=== PATIENT | female | born 1980 | race Caucasian/White ===

== ENCOUNTER 2024-06-10 17:42 | Inpatient (IN) | payer OTHER, SELFPAY ==
[2024-06-10] VITALS (8 sets, daily range): BP systolic 112–131; BP diastolic 68–79; BMI 38.8
--- NOTE | 2024-06-10 14:12 | W.PN.CARDCBS ---
Addendum entered and electronically signed by Christiano Prasad DO 06/10/24 18:14:
I saw and examined the patient.
The Fourdrinier Wire Weaver's note was reviewed and I agree with the note.
Comment:
Patient seen status post pericardiocentesis and drain with Dr. Alex Rubi. Patient reporting discomfort at drain site and with deep inspiration. No other complaints at this time. Patient reports not feeling short of breath.
Telemetry shows sinus tachycardia, PACs
Echocardiogram: Limited study shows large pericardial effusion with evidence of tamponade; within the same study, status post drain placement and resolution of effusion. Technically difficult study by habitus.
GENERAL: no acute distress, obese
EYE: sclera anicteric
NECK: Supple, no JVD, no carotid bruit appreciated
ENT: normal nose, moist mucosal membranes
CARDIAC: Tachycardic, regular rhythm, distant heart sounds, +S1/S2, no murmur, rubs, or gallops; drain in place
CHEST/PULMONARY: Normal effort, clear breath sounds, anteriorly
ABDOMEN: Soft, without focal tenderness or distention
NEUROLOGICAL: Alert and oriented x3
SKIN: Warm and dry, no rash
PSYCH: Normal and appropriate interaction.
A/P as below
Awaiting results from fluid analysis
Plan for repeat echocardiogram in a.m.
Monitor drain output
Colchicine 0.6 mg twice daily
Portable chest x-ray per Dr. Rubi
Monitor on telemetry
Original Note:
Today's Communication / Plan
-
Pericardiocentesis
fluid to micro
monitor drainage over next 24-48 hours
repeat echo in AM
Impression / Plan
-
This is the cardiology consult update.
Consult scanned into chart.
PCP: Thu Hinkle MD
CDY: Tito Smith MD
43 y/o female, presents with metastatic breast cancer on chemotherapy, in remission based on last PET scan. Presented to [facility] w/3 days dyspnea and fatigue. Bedside echo revealed large pericardial effusion w/evidence of tamponade. IVC dilated and not
collapsible, but clear diastolic collapse of the RA and RV. Transferred for pericardiocentesis.
IMPRESSION/PLAN:
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
Invasive ductal carcinoma Left breast
Lymphadenopathy
Metastatic Breast Cancer
s/p partial mastectomy L breast with L axilla LND (10/2019)
s/p Bilateral breast reconstruction (06/2021)
s/p Left breast reconstruction (08/2021)
s/p GENEVIEVE-BSO
s/p redo bilateral breast reconstruction (12/2022 and 06/2023)
Recent PET scan shows remission
Dr. Lewis is oncologist
continue pain management- tramadol, medical marijuana
Large pericardial effusion w/evidence of tamponade
Pericardiocentesis today with fluid sent to microbiology
likely drain to remain in post tap
repeat echo in AM
Chronic Migraine
Anxiety/Depression
Left Knee Osteoarthritis
Right knee patellofemoral arthralgia
Progress Note - Helicopter Officer
Subjective
Date of Service: June 10, 2024
Physical Exam
Physical Exam
Exam deferred d/t urgent nature of tamponade
--- NOTE | 2024-06-10 14:27 | ITS.CL.PN ---
Domestic Freight Forwarder - Procedure Note
Procedure
Procedure Note:
PERICARDIOCENTESIS REPORT
Date: 06/10/2024
Referring: Dr. Tito Smith from the [facility] emergency room
Indications: The patient is a 43-year-old woman with a past medical history significant for recurrent breast cancer on chemotherapy who presented with several days of increasing dyspnea and fatigue to the [facility] emergency room. Workup
in the emergency room showed a CAT scan with a large pericardial effusion. Stat echocardiogram performed in the [facility] emergency room showed a large pericardial effusion with echocardiographic evidence of tamponade physiology. She was
transferred to [facility] for urgent pericardiocentesis. The subxiphoid images were suboptimal and a apical approach is planned.
Procedure: Informed consent was obtained and the patient was draped and prepped in usual sterile fashion. Ultrasound guidance was used. A subxiphoid approach was not performed due to the long distance necessary from the skin to the pericardial
space. Instead a apical approach was used as I felt this was the safest easiest access to the largest area of pericardial effusion. The patient was given conscious sedation with Versed and fentanyl. Lidocaine was used to anesthetize the skin and
underlying tissues. A micropuncture needle was advanced over the cephalic edge of the rib and entered the pericardial space. A micropuncture wire was advanced and movement of the wire suggested a intrapericardial location. The micropuncture
sheath was then advanced and agitated saline was injected and confirmed to be in the pericardial space using echocardiography. A pigtail catheter was then positioned in the pericardium and approximately 660 cc of bloody dark fluid was removed. The
pigtail catheter was sutured in place and follow-up echocardiography showed complete resolution of the pericardial effusion.
Fluoroscopy Time (min): 2.7
Radiation Dose (mGy): 21
DAP (Gy.cm2): 3.5
Conclusion: Successfu placement of a pericardial drain with removal of 660 cc of bloody fluid.
Recommendations: Admit to IVU for ongoing telemetry monitoring. Will monitor pericardial drain output and likely pull the drain if no longer draining in the morning.
--- NOTE | 2024-06-10 15:57 | HPS.HSE ---
Family Physician
-
Family Physician: Thu Hinkle
Chief Complaint
-
Referred for pericardiocentesis
History of Present Illness
Patient is a 43 y/o female with PMH of metastatic breast cancer who presented to [facility] ED today following 3 days of dyspnea and chest tightness, exacerbated by exertion. Mentions it felt like she was gasping for air and that she could not expand her
lungs properly. Bedside echo in [facility] ED showed large pericardial effusion with evidence of tamponade. According to patient, chest CT with PE protocol was done which did not show any filling defects. Patient was transferred to for
pericardiocentesis and immediately went to incinerator plant laborer. Patient was seen after coming back from incinerator plant laborer. present at bedside
Currently, she is comfortably lying in bed. Denies any shortness of breath. Reports slight pain at the site of pericardiocentesis. Does not offer any other complaints.
Medical History
Past Medical History
Past Medical History: Reports Cancer (Left breast DCIS), Psychiatric (Anxiety/depression ) and Other
Additional Past Medical History:
Migraine, left knee osteoarthritis
Past Surgical History: Reports Other
Additional Past Surgical History:
s/p partial mastectomy L breast with L axilla LND (10/2019)
s/p Bilateral breast reconstruction (06/2021)
s/p Left breast reconstruction (08/2021)
s/p GENEVIEVE-BSO
s/p redo bilateral breast reconstruction (12/2022 and 06/2023)
Social History
Tobacco: Non-smoker
Alcohol: Occasional
Drug: None
Family History
Family History: Other (Thyroid cancer maternal grandmother, malignant prostate cancer father)
Allergies / Home Medications
Allergies reflects when Allergies were last updated in [employer].
Home Medications with original date entered in [employer]
Allergy/Medication List:
Allergies
Allergy/AdvReac Type Severity Reaction Status Date / Time
amoxicillin Allergy full body Verified 06/10/24 16:05
rash
codeine Allergy projectile Verified 06/10/24 16:05
vomiting
erythromycin base Allergy Vomiting Verified 06/10/24 16:05
Penicillins Allergy Vomiting Verified 06/10/24 16:05
Home Medications
oudwcagahv-ggbepnlidfigt-iccwexvx 50 mg-300 mg-40 mg capsule (Fioricet) 1 cap PO Q8HPRN PRN migraine 06/10/24
calcium 600 mg (as carbonate)-vitamin D3 20 mcg (800 unit) tablet (Caltrate with Vitamin D3) 1 tab PO BID 06/10/24
docusate sodium 100 mg capsule (Colace) 100 mg PO BID 06/10/24
duloxetine 30 mg capsule,delayed release (Cymbalta) 30 mg PO HS 06/10/24
gabapentin 300 mg capsule 600 mg PO DAILY 06/10/24
gabapentin 300 mg capsule 900 mg PO HS 06/10/24
lorazepam 0.5 mg tablet 0.5 mg PO Q4HPRN PRN anxiety 06/10/24
melatonin 10 mg capsule 20 mg PO HS 06/10/24
multivitamin 1 tab PO DAILY 06/10/24
multivitamin with minerals (Hair,Skin and Nails tablet) 3 tab PO DAILY 06/10/24
pantoprazole 40 mg tablet,delayed release (Protonix) 40 mg PO HS 06/10/24
tramadol 50 mg tablet 50 mg PO Q6H PRN moderate pain 06/10/24
Review of Systems
-
History Source: Patient
A 12 point ROS was completed and negative except as noted: Yes
Respiratory: Reports No Symptoms
Cardiac: Reports Chest Pain (Slight pain at site of drain)
Physical Exam
Physical Exam
General: Well Developed, Well Nourished, Conversant and Morbidly Obese
HEENT: NormoCephalic, Anicteric and Moist mucous membranes
Respiratory: Clear, Non Labored Respirations and Other (Saturating well on room air); No Wheezes or Crackles
Cardiac: S1/S2, Regular Rhythm, Tachycardia (Ranging between 95-105) and Other (Anterior chest drain, mild TTP)
GI: Soft, Non Tender, Non Distended and Normal Bowel Sounds
Musculoskeletal: No Clubbing, No Cyanosis and No Edema
Skin: Warm and Dry
Neuro: Awake, Alert, Oriented and AO x 3; No Slurred Speech
Psych: Calm and Intact Judgment/Insight
Impression/Plan
-
43 y/o F with past medical history of metastatic left breast cancer who was referred for pericardiocentesis for pericardial effusion.
#Metastatic breast cancer with pericardial effusion:
-Appreciate cardiology-s/p pericardiocentesis (660cc removed in cath lab nurse)
-drain to remain in place (high risk for clogging as per cardiology)
-Pericardial fluid sent for culture and cytology
-CXR reviewed by me-no signs of pneumothorax or pleural effusion, cardiomegaly
-Start colchicine for pericarditis prophylaxis
-Cardiology plans for echo tomorrow
-pain control with tramadol and dilaudid as needed-continue home gabapentin
-IV vascular team consulted for IV access
-CBC, BMP ordered for tomorrow
# GERD prophylaxis
-Continue Protonix
# Vitamin D deficiency
-Continue calcium carbonate
# Depression/anxiety
-Continue Cymbalta
DVT prophylaxis
Lovenox
CODE STATUS
Full code
--- NOTE | 2024-06-10 17:41 | W.PN.UPDATE ---
Update Note
Progress Note Update
I personally performed a history and physical exam of the patient and discussed management with the resident. I reviewed the resident's note and agree with the documented findings and plan of care HPI/CC.
43 y/o F who presented from the clinical laboratory manager after having pericardiocentesis via apical approach for malignant pericardial effusion due to metastatic breast cancer. Patient reports of
121/74, 124, 26, 99% RA
Gen: NAD, AAOx3.
Eyes: EOMI, PERRLA, no scleral icterus.
Neck: supple.
CV: RRR, +S1/S2, no m/r/g.
Resp: CTAB, no rales, wheezes, or rhonchi.
Abd: +BS, soft, NT, ND
Skin: No rashes.
Neuro: CN 2-12 intact, non-focal.
Psych: Normal mood and affect.
Metastatic breast cancer with malignant pericardial effusion:
-s/p 660cc removed in clinical laboratory manager via apical approach, drain to remain in place (high risk for clogging as per cardiology)
-Follow fluid studies including fluid culture and cytology
-check CXR
-start colchicine for pericarditis prophylaxis
-echo tomorrow
-c/s cards, discussed with Dr. Prasad
-pain control (tramadol/dilaudid)
FULL/Lovenox
[2024-06-10 17:49] LABS: Body Fluid Glucose 46 mg/dl; Body Fluid Protein 5.7 g/dl
[2024-06-10 17:55] LABS: Body Fluid Hematocrit 21.7 %; Body Fluid WBC 1210 /CUMM
[2024-06-10 17:57] LABS: Body Fluid Second Tech EYM
[2024-06-10 18:15] LABS: % Basophils 0.4 % (0-2); % Immature Granulocytes 0.7 % (0-0.5); % Lymphocytes 10.6 % (20.5-51.1); % Monocytes 2.8 % (1.7-9.3); % Neutrophils 85.5 % (42.2-75.2); Absolute Lymphocytes 0.5 10^3/uL (1.2-3.4); Absolute Monocytes 0.1 10^3/uL (0.1-0.6); Absolute Neutrophils 3.9 10^3/uL (1.4-6.5); Hematocrit 24.4 % (37.0-47.0); Hemoglobin 7.9 g/dL (12.0-16.0); Mean Corp Hgb Conc. 32.4 g/dL (33.0-37.0); Mean Corpuscular Hgb 33.6 pg (27.0-31.0); Mean Corpuscular Volume 103.8 fL (81.0-99.0); Mean Platelet Volume 8.8 fL (7.4-10.4); Nucleated Red Blood Cells % 0 %; Platelet Count 172 10^3/uL (130-400); Red Blood Cell Count 2.35 10^6/uL (4.20-5.40); Red Cell Dist. Width 20.5 % (11.5-14.5); White Blood Cell Count 4.6 10^3/uL (4.8-10.8)
[2024-06-10 18:17] LABS: Body Fluid LDH 3391 U/L
[2024-06-10 18:27] LABS: ALT (SGPT) 200 U/L (0-35); AST (SGOT) 107 U/L (14-36); Albumin 3.8 g/dl (3.5-5.0); Alkaline Phosphatase 134 U/L (38-126); Blood Urea Nitrogen 14 mg/dl (7-17); Calcium 8.3 mg/dl (8.4-10.2); Carbon Dioxide 26 mmol/L (22-30); Chloride 101 mmol/L (98-107); Estimated Creatinine Clearance > 125 ml/min; Glucose 102 mg/dl (70-99); Potassium 3.8 mmol/L (3.5-5.1); Sodium 134 mmol/L (135-145); Total Bilirubin 1.3 mg/dl (0.2-1.3); eGFR > 60.00
[2024-06-10 19:30] LABS: Body Fluid Granulocytes 84 %; Body Fluid Lymphocytes 4 %; Body Fluid Macrophages 6 %; Body Fluid Mesothelials 5 %
--- NOTE | 2024-06-10 19:30 | PTCARENOTE ---
Pt received from manager labor delivery post pericardiocentesis. Left lower chest dressing dry and intact, drain contains @20mls serosanguineous fluid. Pt c/o 8/10 left sided chest pain, unable to take deep breaths or get comfortable. Oxygen sat 96% on room air.
Portable CXR done, no pneumo noted per . Pt seen by Drs. Rubi, Shanice and Anant. Will plan to give pain medication after pt eats a little (her request). Pt assisted OOB to commode, voiding without difficulty. Telemetry shows sinus tach @
110-120's. Will monitor closely.
[2024-06-10] MEDS: OSCAL 500 + D 500 MG PO (19:38)
[2024-06-10] MEDS: SENOKOT-S 1 TABLET PO (19:38)
[2024-06-10] MEDS: COLCHICINE 0.6 MG PO (19:39)
[2024-06-10] MEDS: DILAUDID 0.5 MG IV ×2 (19:39→22:54)
--- NOTE | 2024-06-10 21:07 | PTCARENOTE ---
Received patient at change of shift. Laying in bed with bedside. A&OX3. Temp 100.6, HR 130s-120s, BP and O2 stable. Pain 10/10 at drain site and left side. Gave Dilaudid-- see MAR. IV team called to access port. Discussed plan of care.
Patient verbalized understanding.
[2024-06-10] MEDS: ATIVAN 0.5 MG PO (21:41)
--- NOTE | 2024-06-10 22:11 | VATNOTE ---
attempted several times to access port; unable to reach diaphragm; another VAT RN to attempt.
--- NOTE | 2024-06-10 22:42 | VATNOTE ---
ATTEMPTED X2 TO ACCESS R SUBQ POWER PRT W/O SUCCESS. PT REPORTS THERE IS OFTEN DIFFICULTY WELL AT [facility] . PT WITH ADEQUATE PERIPHERAL IV ACCESS.
[2024-06-10] MEDS: NEURONTIN 900 MG PO (22:55)
[2024-06-10] MEDS: MELATONIN 20 MG PO (22:55)
[2024-06-10] MEDS: PROTONIX 40 MG PO (22:55)
[2024-06-10] MEDS: TYLENOL 650 MG PO (22:55)
[2024-06-10] MEDS: CYMBALTA DELAYED RELEASE 30 MG PO (22:55)
--- NOTE | 2024-06-11 00:11 | PTCARENOTE ---
Patient temp 101.4. Tylenol given-- see MAR.
[2024-06-11 04:31] VITALS: BP 114/73
[2024-06-11] MEDS: ULTRAM 50 MG PO ×2 (04:36→19:07)
[2024-06-11 05:28] LABS: % Basophils 0.5 % (0-2); % Eosinophils 0.3 % (0-6); % Immature Granulocytes 0.5 % (0-0.5); % Lymphocytes 15.9 % (20.5-51.1); % Monocytes 2.6 % (1.7-9.3); % Neutrophils 80.2 % (42.2-75.2); Absolute Lymphocytes 0.6 10^3/uL (1.2-3.4); Absolute Monocytes 0.1 10^3/uL (0.1-0.6); Absolute Neutrophils 3.1 10^3/uL (1.4-6.5); Hematocrit 24.5 % (37.0-47.0); Mean Corp Hgb Conc. 32.7 g/dL (33.0-37.0); Mean Corpuscular Hgb 32.5 pg (27.0-31.0); Mean Corpuscular Volume 99.6 fL (81.0-99.0); Mean Platelet Volume 9.1 fL (7.4-10.4); Nucleated Red Blood Cells % 0 %; Platelet Count 182 10^3/uL (130-400); Red Blood Cell Count 2.46 10^6/uL (4.20-5.40); Red Cell Dist. Width 19.9 % (11.5-14.5); White Blood Cell Count 3.8 10^3/uL (4.8-10.8)
[2024-06-11 06:13] LABS: ALT (SGPT) 171 U/L (0-35); AST (SGOT) 79 U/L (14-36); Albumin 3.5 g/dl (3.5-5.0); Alkaline Phosphatase 112 U/L (38-126); Blood Urea Nitrogen 15 mg/dl (7-17); Calcium 8.4 mg/dl (8.4-10.2); Carbon Dioxide 26 mmol/L (22-30); Chloride 102 mmol/L (98-107); Estimated Creatinine Clearance > 125 ml/min; Glucose 87 mg/dl (70-99); Magnesium 2.1 mg/dl (1.6-2.3); Potassium 3.7 mmol/L (3.5-5.1); Sodium 136 mmol/L (135-145); Total Bilirubin 1.4 mg/dl (0.2-1.3); Total Protein 5.9 g/dl (6.3-8.2); eGFR > 60.00
[2024-06-11] MEDS: DILAUDID 0.5 MG IV ×2 (07:04→14:44)
[2024-06-11 07:51] VITALS: BP 112/62
--- NOTE | 2024-06-11 08:10 | PTCARENOTE ---
Pt reports 8/10 pain at left lower chest drainage site. Site is c/d/i. Dilaudid administered as ordered. See MAR. Pt reports some relief. Plan of care verbalized w/ pt. Verbalizes understanding. Currently is in bed; call pina w/in reach.
[2024-06-11] MEDS: COLCHICINE 0.6 MG PO ×2 (08:11→19:59)
[2024-06-11] MEDS: SENOKOT-S 1 TABLET PO ×2 (08:11→20:00)
[2024-06-11] MEDS: NEURONTIN 600 MG PO (08:11)
[2024-06-11] MEDS: OSCAL 500 + D 500 MG PO ×2 (08:11→20:00)
--- NOTE | 2024-06-11 08:21 | W.PN.CARDCBS ---
Addendum entered and electronically signed by Emi Gracia DO 06/11/24 13:18:
I saw and examined the patient.
The Silk Worker's note was reviewed and I agree with the note.
Comment: Patient was seen and examined this morning and I was present for bedside echocardiogram. Overall she had an uneventful evening but is complaining about pain with deep inspiration following insertion of pericardial drain. On a positive
note the shortness of breath that she experienced prior to presenting to [facility] has resolved.
General: No acute distress, AAOX3
Heart: Regular. Positive S1-S2. No murmur. No rub. Pericardial drain site intact.
Lungs: Bronchovesicular breath sounds, clear
Abd: Positive BS, NT/ND, neg rebound/rigidity/guarding
Ext: No edema
Neuro: nonfocal
Plan:
Large pericardial effusion with evidence of tamponade status post pericardiocentesis and placement of pericardial drain with goal of 660cc of bloody fluid
-Notes significant improvement of shortness of breath post thoracentesis.
-30 cc total drain output overnight
-Bedside echocardiogram with normal biventricular size and systolic function, no pericardial effusion
-Fluid cultures pending. Cytology pending.
- continue colchicine. Pain control
- Monitor fever trends; last time 06/10/2024 101.4 degrees; currently afebrile
-Plan discussed with interventional cardiology. Will leave drain overnight and plan on removing tomorrow with repeat limited echocardiogram on Thursday
-Provided update to patient's oncology team
Original Note:
Today's Communication / Plan
-
Check echo today
Continue to monitor output from drain
Continue colchicine
Pain control
Impression / Plan
-
This is the cardiology consult update.
Consult scanned into chart.
PCP: Thu Hinkle MD
CDY: Tito Smith MD
IMPRESSION/PLAN:
Presented to [facility] with dyspnea and fatigue noted to have large pericardial effusion and transferred to [facility] 06/10/2024
Large pericardial effusion w/evidence of tamponade
s/p Pericardiocentesis 06/10/2024 with removal of 660 cc of bloody fluid with placement of pericardial drain
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
Invasive ductal carcinoma Left breast
Lymphadenopathy
Metastatic Breast Cancer
s/p partial mastectomy L breast with L axilla LND (10/2019)
s/p Bilateral breast reconstruction (06/2021)
s/p Left breast reconstruction (08/2021)
s/p GENEVIEVE-BSO
s/p redo bilateral breast reconstruction (12/2022 and 06/2023)
Recent PET scan shows remission
Dr. Lewis is oncologist
continue pain management- tramadol, medical marijuana
Chronic Migraine
Anxiety/Depression
Left Knee Osteoarthritis
Right knee patellofemoral arthralgia
Echo06/11/2024: pending
Plan:
Presented to [facility] with dyspnea and fatigue x3 days noted to have large pericardial effusion and transferred to [facility] 06/10/2024
Large pericardial effusion w/evidence of tamponade
Notes significant improvement of shortness of breath post thoracentesis. Is having some sharp pain when taking a deep breath which she feels is from her indwelling drain.
s/p Pericardiocentesis 06/10/2024 with removal of 660 cc of bloody fluid with placement of pericardial drain
fluid sent to cytology
Indwelling drain with ~30 cc of bloody fluid (06/11/2024)
repeat echo ordered for 06/11/2024; await results. Likely will leave drain in for 24 hours then pull.
Placed on colchicine 06/10/2024
Pain control
Recurrent breast cancer, ongoing treatment with oncology
HPI :
The patient is a 43-year-old woman with a past medical history significant for recurrent breast cancer on chemotherapy in remission based on last PET scan 1 month ago, who presented with several days of increasing dyspnea and fatigue to the
[facility] emergency room. Workup in the emergency room showed a CT scan with a large pericardial effusion. Stat echocardiogram performed in the [facility] emergency room showed a large pericardial effusion with echocardiographic
evidence of tamponade physiology. She was transferred to [facility] for urgent pericardiocentesis 06/10/2024
Progress Note - Edi Developer
Subjective
Date of Service: June 11, 2024
Notes significant improvement of shortness of breath post thoracentesis. Is having some sharp pain when taking a deep breath which she feels is from her indwelling drain.
Objective
Labs:
06/11/24 04:32
06/11/24 04:32
Labs
Hgb 8.0 g/dL (12.0-16.0) L 06/11/24 04:32
Hct 24.5 % (37.0-47.0) L 06/11/24 04:32
Plt Count 182 10^3/uL (130-400) 06/11/24 04:32
Sodium 136 mmol/L (135-145) 06/11/24 04:32
Potassium 3.7 mmol/L (3.5-5.1) 06/11/24 04:32
BUN 15 mg/dl (7-17) 06/11/24 04:32
Creatinine 0.4 mg/dL (0.6-1.0) L 06/11/24 04:32
Glucose 87 mg/dl (70-99) 06/11/24 04:32
Vital Signs and I&O:
Vital Signs
Temp Pulse Resp BP Pulse Ox
98.3 F 94 18 114/73 92
06/11/24 07:57 06/11/24 05:00 06/11/24 07:57 06/11/24 04:31 06/11/24 07:57
Vital Signs
Temp Pulse Resp BP Pulse Ox
98.3 F 94 18 114/73 92
06/11/24 07:57 06/11/24 05:00 06/11/24 07:57 06/11/24 04:31 06/11/24 07:57
Intake & Output
06/09/24 06/10/24 06/11/24 06/12/24
06:59 06:59 06:59 07:59
Intake Total 60 / 60
Output Total 400 / 400
Balance -340 / -340
Physical Exam
Physical Exam
GEN: No distress, awake, Ox3, sitting in bed
HEENT: supple, anicteric, mmm
LUNGS: CTA, no wheezes/rales
CV: Reg, S1/S2, no murmur, rub or gallop; indwelling pericardial drain with bloody fluid approximately 30 cc
ABD: soft, BS+, NT/ND
EXT: No edema, clubbing or cyanosis
NEURO: Gross non-focal
SKIN: No rash, warm, dry, pink
--- NOTE | 2024-06-11 10:05 | W.PN.HOSP.TC ---
Addendum entered and electronically signed by David Gallagher MD 06/11/24 15:28:
I saw and evaluated the patient. I reviewed the resident�s note and agree with findings and plan as documented in the resident�s note except for changes in my documentation
42-year-old male with metastatic breast cancer with chest tightness and dyspnea. Patient was transferred from [place] to [facility] for pericardiocentesis
Chest x-ray reviewed by me-no acute changes
Still has pain
Cardiovascular system S1-S2 appreciated
Chest clear to auscultation
Pericardial drain noted
Abdomen soft and nontender no right upper quadrant tenderness
# Pericardial effusion status post pericardiocentesis
660 mL fluid removed
Drain output in 24 hours - 30 mL
Pericardial drain remains in place
Started on colchicine
Follow-up echo per cardiology
Pain control
# Metastatic breast cancer on chemotherapy. In remission based on last PET scan
Initially diagnosed on a routine mammogram in 2019 underwent lumpectomy-initially was ER/[place] positive and HER2 negative. Was treated with hormonal therapy
History of radical hysterectomy 2020
Had a recurrence , negative malignancy ,patient underwent bilateral mastectomy 2021 with computer science instructor placement, followed by removal secondary to seroma
Underwent deep free flap 2022 with revision in 2023.
Recurrence was noted on a spot PET scan with the spot in the liver and also chest wall December 2023-started Gemzar and carboplatin chemotherapy
PET scan May 2024-no active disease. Carboplatin was stopped and patient continues on Gemzar.
# Anemia secondary to malignancy. Iron and B12 adequate
# Elevated LFTs-trending down. Bilirubin may be lagging improvement. Continue to follow. No right upper quadrant tenderness
# Vitamin D deficiency
# GERD-continue PPI
# History of migraines-on Fioricet as outpatient
# History of LEEP procedure 2011 and 2014
# Anxiety and depression-continue Cymbalta, Lorazepam
# DVT prophylaxis-Lovenox
# Full code
Discussed with at bedside
Original Note:
Today's Communication/Plan
-
Echo today
Continue colchicine
Monitor output from drain
Pain management
Assessment / Plan
Assessment / Plan
43 y/o F with past medical history of metastatic left breast cancer who was referred for pericardiocentesis for pericardial effusion.
#Metastatic breast cancer with pericardial effusion:
-Appreciate cardiology-s/p pericardiocentesis (660cc removed in microbiology lab technician)
-drain to remain in place (high risk for clogging as per cardiology)
-Pericardial fluid sent for culture, Gram stain and cytology-Gram stain preliminary negative for infectious etiology, rest is pending
-CXR after pericardiocentesis-no signs of pneumothorax or pleural effusion, cardiomegaly, Medicare port and pericardial drain seen
-Continue colchicine for pericarditis prophylaxis
-Cardiology plans for echo this morning
-pain adequately controlled with tramadol and dilaudid as needed-continue home gabapentin
-IV vascular team consulted for IV access
-Hemoglobin stable
-Continue to monitor pericardial drain output
# GERD prophylaxis
-Continue Protonix
# Vitamin D deficiency
-Continue calcium carbonate
# Depression/anxiety
-Continue Cymbalta
DVT prophylaxis
Lovenox
CODE STATUS
Full code
Anticipated Discharge: Within 24 hours
Subjective/Interval History
-
Date of Service: June 11, 2024
Patient mentions she is feeling good. Shortness of breath is much better than prior to pericardiocentesis however does mention deep breathing is slightly difficult due to chest pain at site of drain.
Objective Data
-
Labs:
Laboratory Results
06/11/24
04:32
WBC 3.8 L
Hgb 8.0 L
Hct 24.5 L
Plt Count 182
Sodium 136
Potassium 3.7
Chloride 102
Carbon Dioxide 26
BUN 15
Creatinine 0.4 L
Glucose 87
Calcium 8.4
Total Bilirubin 1.4 H
AST 79 H
ALT 171 H
Alkaline Phosphatase 112
Vital Signs:
Vital Signs
Temp Pulse Resp BP Pulse Ox
98.3 F 103 18 112/62 92
06/11/24 07:57 06/11/24 09:45 06/11/24 07:57 06/11/24 07:51 06/11/24 07:57
I&O
06/10/24 06/11/24 06/12/24
06:59 06:59 07:59
Intake Total 60 / 60 400 / 400
Output Total 400 / 400 30 / 30
Balance -340 / -340 370 / 370
Review of Systems
-
History Source: Patient
All other systems: Reviewed and negative
Physical Exam
-
General: Well Developed and No Apparent Distress
HEENT: Normocephalic, Atraumatic and Moist Mucous Membranes
Respiratory: Clear to Auscultation and Non Labored Respirations; Negative Wheezes or Crackles
Cardiac: Regular Rhythm, S1/S2 and Other (Pericardial drain and chest port); Negative Murmur, Rub or Gallop
GI: Soft, Nontender, Nondistended and Normal Bowel Sounds; Negative Organomegaly
Musculoskeletal: No Clubbing, No Cyanosis and No Edema
Skin: Warm and Dry
Neuro: Awake, Alert, Oriented and AO x 3
Psych: Calm
[2024-06-11 11:25] VITALS: BP 96/67
[2024-06-11 11:26] LABS: Iron 80 ug/dl (37-170)
[2024-06-11] MEDS: SENOKOT PO (11:35)
[2024-06-11 11:40] LABS: Percent Saturation 28 % (20-50); Total Iron Binding Capacity 280 ug/dl (265-497)
[2024-06-11] MEDS: SENOKOT 17.2 MG PO ×2 (11:45→20:00)
[2024-06-11] MEDS: MIRALAX 17 GRAMS PO (11:46)
[2024-06-11 12:38] LABS: Vitamin B12 > 1000 pg/ml (239-931)
[2024-06-11 14:39] VITALS: BP 111/64
[2024-06-11] MEDS: LOVENOX 40 MG SC (17:25)
[2024-06-11 19:41] VITALS: BP 120/68
[2024-06-11] MEDS: ROXANOL ORAL CONCENTRATE 5 MG PO (20:10)
[2024-06-11 20:16] VITALS: BMI 39.8
--- NOTE | 2024-06-11 20:55 | PTCARENOTE ---
Patient received at change of shift out of bed to the chair. LUQ/LL chest pericardial drain present, sutures with tegaderm C/D/I, sanguinous output. Patient states pain is moderate if she is not moving but is severe when she does move, see MAR for
PRN pain medication administration. Sinus rhythm to sinus tachycardia on telemetry. Oxygen saturation 94-96% on room air. SQ port not currently accessed. Right arm PIV intact. Plan of care discussed with patient. Call heller within reach. Care ongoing.
[2024-06-11] MEDS: PROTONIX 40 MG PO (21:51)
[2024-06-11] MEDS: TYLENOL 650 MG PO (21:51)
[2024-06-11] MEDS: NEURONTIN 900 MG PO (21:51)
[2024-06-11] MEDS: MELATONIN 20 MG PO (21:51)
[2024-06-11] MEDS: CYMBALTA DELAYED RELEASE 30 MG PO (21:51)
[2024-06-11] MEDS: ATIVAN 0.5 MG PO (21:52)
[2024-06-11 23:14] VITALS: BP 120/65
[2024-06-12 04:25] VITALS: BP 118/70
[2024-06-12] MEDS: ULTRAM 50 MG PO ×2 (04:37→21:15)
[2024-06-12 05:34] LABS: ALT (SGPT) 137 U/L (0-35); AST (SGOT) 50 U/L (14-36); Albumin 3.2 g/dl (3.5-5.0); Alkaline Phosphatase 112 U/L (38-126); Blood Urea Nitrogen 15 mg/dl (7-17); Calcium 8.9 mg/dl (8.4-10.2); Carbon Dioxide 32 mmol/L (22-30); Chloride 101 mmol/L (98-107); Estimated Creatinine Clearance > 125 ml/min; Glucose 96 mg/dl (70-99); Magnesium 2.1 mg/dl (1.6-2.3); Sodium 138 mmol/L (135-145); Total Bilirubin 0.8 mg/dl (0.2-1.3); Total Protein 5.7 g/dl (6.3-8.2); eGFR > 60.00
[2024-06-12 05:46] LABS: % Basophils 1.1 % (0-2); % Eosinophils 1.7 % (0-6); % Immature Granulocytes 0.6 % (0-0.5); % Lymphocytes 38.6 % (20.5-51.1); % Monocytes 4.8 % (1.7-9.3); % Neutrophils 53.2 % (42.2-75.2); Absolute Eosinophils 0.1 10^3/uL (0-0.7); Absolute Lymphocytes 1.4 10^3/uL (1.2-3.4); Absolute Monocytes 0.2 10^3/uL (0.1-0.6); Absolute Neutrophils 1.9 10^3/uL (1.4-6.5); Hematocrit 24.6 % (37.0-47.0); Hemoglobin 8.2 g/dL (12.0-16.0); Mean Corp Hgb Conc. 33.3 g/dL (33.0-37.0); Mean Corpuscular Hgb 33.5 pg (27.0-31.0); Mean Corpuscular Volume 100.4 fL (81.0-99.0); Mean Platelet Volume 8.6 fL (7.4-10.4); Nucleated Red Blood Cells % 0 %; Platelet Count 228 10^3/uL (130-400); Red Blood Cell Count 2.45 10^6/uL (4.20-5.40); Red Cell Dist. Width 19.1 % (11.5-14.5); White Blood Cell Count 3.5 10^3/uL (4.8-10.8)
--- NOTE | 2024-06-12 07:34 | W.PN.HOSP.TC ---
Addendum entered and electronically signed by David Gallagher MD 06/12/24 14:21:
Seen earlier today. Late documentation
I saw and evaluated the patient. I reviewed the resident�s note and agree with findings and plan as documented in the resident�s note except for changes in my documentation
42-year-old male with metastatic breast cancer with chest tightness and dyspnea. Patient was transferred from [place] to [facility] for pericardiocentesis
Chest x-ray reviewed by me-no acute changes
Still has pain
Cardiovascular system S1-S2 appreciated
Chest clear to auscultation
Pericardial drain noted
Abdomen soft and nontender no right upper quadrant tenderness
# Pericardial effusion status post pericardiocentesis
660 mL fluid removed
Drain output in 24 hours - 0 mL
Echo from yesterday with no collection
Drain was taken out today 06/12/2024.
Started on colchicine
Follow-up echo per cardiology Thursday
Pain control
Fluid studies indicate exudative fluid
Fluid cytology pending
# Metastatic breast cancer on chemotherapy. In remission based on last PET scan
Initially diagnosed on a routine mammogram in 2019 underwent lumpectomy-initially was ER/WA positive and HER2 negative. Was treated with hormonal therapy
History of radical hysterectomy 2020
Had a recurrence , negative malignancy ,patient underwent bilateral mastectomy 2021 with hand cloth folder placement, followed by removal secondary to seroma
Underwent deep free flap 2022 with revision in 2023.
Recurrence was noted on a spot PET scan with the spot in the liver and also chest wall December 2023-started Gemzar and carboplatin chemotherapy
PET scan May 2024-no active disease. Carboplatin was stopped and patient continues on Gemzar.
# Anemia secondary to malignancy. Iron and B12 adequate
# Elevated LFTs-trending down. Continue to follow. No right upper quadrant tenderness
# Vitamin D deficiency
# GERD-continue PPI
# History of migraines-on Fioricet as outpatient
# History of LEEP procedure 2011 and 2014
# Anxiety and depression-continue Cymbalta, Lorazepam
# DVT prophylaxis-Lovenox
# Full code
Discussed with nursing
Discussed with Dr. Rubi at bedside
Original Note:
Today's Communication/Plan
-
Follow fluid cytology
Assessment / Plan
Assessment / Plan
43 y/o F with past medical history of metastatic left breast cancer who was referred for pericardiocentesis for pericardial effusion.
#Metastatic breast cancer with pericardial effusion:
-Appreciate cardiology-s/p pericardiocentesis (660cc removed in manager cardiac cath)-drain to remain in place
-Pericardial fluid sent for culture, Gram stain, fungal smear and cytology-Gram stain: no organisms seen; Culture: NGTD
-CXR after pericardiocentesis-no signs of pneumothorax or pleural effusion, cardiomegaly, Medicare port and pericardial drain seen
-Continue colchicine for pericarditis prophylaxis
-Echo done yesterday�EF 60 to 65%, no pericardial effusion, no valve abnormality
-pain adequately controlled with tramadol and dilaudid as needed-continue home gabapentin
-IV vascular team consulted for IV access
-Hemoglobin stable
-Continue to monitor pericardial drain output-output less than 10 cc since 06/10
# GERD prophylaxis
-Continue Protonix
# Vitamin D deficiency
-Continue calcium carbonate
# Depression/anxiety
-Continue Cymbalta
DVT prophylaxis
Lovenox
CODE STATUS
Full code
Anticipated Discharge: Within 24 hours
Subjective/Interval History
-
Date of Service: June 12, 2024
Patient mentions chest pain at the site of drain is much better than yesterday. Breathing has also improved although still does have some pain with deep breaths. No other complaints.
Objective Data
-
Labs:
Laboratory Results
06/12/24
05:00
WBC 3.5 L
Hgb 8.2 L
Hct 24.6 L
Plt Count 228 D
Sodium 138
Potassium 4.0
Chloride 101
Carbon Dioxide 32 H
BUN 15
Creatinine 0.5 L
Glucose 96
Calcium 8.9
Total Bilirubin 0.8
AST 50 H
ALT 137 H
Alkaline Phosphatase 112
Vital Signs:
Vital Signs
Temp Pulse Resp BP Pulse Ox
98.2 F 90 18 118/70 92
06/12/24 04:23 06/12/24 06:00 06/12/24 04:23 06/12/24 04:25 06/12/24 04:25
I&O
06/11/24 06/12/24 06/13/24
05:59 06:59 06:59
Intake Total
Output Total
Balance
Review of Systems
-
History Source: Patient
All other systems: Reviewed and negative
Physical Exam
-
General: Well Developed and No Apparent Distress
HEENT: Normocephalic, Atraumatic and Moist Mucous Membranes
Respiratory: Clear to Auscultation and Non Labored Respirations; Negative Wheezes or Crackles
Cardiac: Regular Rhythm, S1/S2 and Other (Pericardial drain and ant chest port); Negative Murmur, Rub or Gallop
GI: Soft, Nontender, Nondistended and Normal Bowel Sounds; Negative Organomegaly
Musculoskeletal: No Clubbing, No Cyanosis and No Edema
Skin: Warm and Dry
Neuro: Awake, Alert, Oriented and AO x 3
Psych: Calm
[2024-06-12 07:49] VITALS: BP 112/72
[2024-06-12] MEDS: SENOKOT-S 1 TABLET PO (08:22)
[2024-06-12] MEDS: NEURONTIN 600 MG PO (08:22)
[2024-06-12] MEDS: SENOKOT 17.2 MG PO (08:22)
[2024-06-12] MEDS: OSCAL 500 + D 500 MG PO ×2 (08:22→19:38)
[2024-06-12] MEDS: COLCHICINE 0.6 MG PO ×2 (08:22→19:38)
[2024-06-12] MEDS: MIRALAX 17 GRAMS PO (08:23)
[2024-06-12] MEDS: DILAUDID 0.5 MG IV (10:48)
--- NOTE | 2024-06-12 11:03 | W.PN.CARDCBS ---
Today's Communication / Plan
-
Interventional cardiology to pull pericardial drain
Colchicine/pain control
Repeat limited 2D echocardiogram Thursday and if stable anticipate discharge
Impression / Plan
-
This is the cardiology consult update.
Consult scanned into chart.
PCP: Thu Hinkle MD
CDY: Tito Smith MD
IMPRESSION/PLAN:
Presented to [facility] with dyspnea and fatigue noted to have large pericardial effusion and transferred to [facility] 06/10/2024
Large pericardial effusion w/evidence of tamponade
s/p Pericardiocentesis 06/10/2024 with removal of 660 cc of bloody fluid with placement of pericardial drain
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
Invasive ductal carcinoma Left breast
Lymphadenopathy
Metastatic Breast Cancer
s/p partial mastectomy L breast with L axilla LND (10/2019)
s/p Bilateral breast reconstruction (06/2021)
s/p Left breast reconstruction (08/2021)
s/p GENEVIEVE-BSO
s/p redo bilateral breast reconstruction (12/2022 and 06/2023)
Recent PET scan shows remission
Dr. Lewis is oncologist
continue pain management- tramadol, medical marijuana
Chronic Migraine
Anxiety/Depression
Left Knee Osteoarthritis
Right knee patellofemoral arthralgia
Echo06/11/2024: Limited follow-up 2D echocardiogram with normal biventricular size and systolic
Plan:
Large pericardial effusion with evidence of tamponade status post pericardiocentesis and placement of pericardial drain with goal of 660cc of bloody fluid
- Hemodynamically stable
- No drainage overnight from pericardial drain
- Hemoglobin stable, 8.2,Creatinine 0.5.
- LFTs improving: AST 79...50. ALT 171...137
- Spoke with interventional cardiology and will plan to remove drain today.
- Repeat limited 2D echocardiogram
- Bedside echocardiogram 06/11/2024 with normal biventricular size and systolic function, no pericardial effusion
- Fluid cultures pending. Cytology pending.
- Continue colchicine. Pain control
- Monitor fever trends; last time 06/10/2024 101.4 degrees; currently afebrile
- Provided update to patient's oncology team
HPI :
The patient is a 43-year-old woman with a past medical history significant for recurrent breast cancer on chemotherapy in remission based on last PET scan 1 month ago, who presented with several days of increasing dyspnea and fatigue to the
[facility] emergency room. Workup in the emergency room showed a CT scan with a large pericardial effusion. Stat echocardiogram performed in the [facility] emergency room showed a large pericardial effusion with echocardiographic
evidence of tamponade physiology. She was transferred to [facility] for urgent pericardiocentesis 06/10/2024
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
Subjective
Date of Service: June 12, 2024
Seen and examined this morning. Complaining of pain around pericardial drain but otherwise no events
Objective
Labs:
06/12/24 05:00
06/12/24 05:00
Labs
Hgb 8.2 g/dL (12.0-16.0) L 06/12/24 05:00
Hct 24.6 % (37.0-47.0) L 06/12/24 05:00
Plt Count 228 10^3/uL (130-400) D 06/12/24 05:00
Sodium 138 mmol/L (135-145) 06/12/24 05:00
Potassium 4.0 mmol/L (3.5-5.1) 06/12/24 05:00
BUN 15 mg/dl (7-17) 06/12/24 05:00
Creatinine 0.5 mg/dL (0.6-1.0) L 06/12/24 05:00
Glucose 96 mg/dl (70-99) 06/12/24 05:00
Vital Signs and I&O:
Vital Signs
Temp Pulse Resp BP Pulse Ox
98.1 F 109 18 112/72 97
06/12/24 07:50 06/12/24 10:00 06/12/24 07:50 06/12/24 07:49 06/12/24 07:50
Vital Signs
Temp Pulse Resp BP Pulse Ox
98.1 F 109 18 112/72 97
06/12/24 07:50 06/12/24 10:00 06/12/24 07:50 06/12/24 07:49 06/12/24 07:50
Intake & Output
06/10/24 06/11/24 06/12/24 06/13/24
05:59 05:59 06:59 06:59
Intake Total
Output Total
Balance
Physical Exam
Physical Exam
General: No acute distress, AAOX3
Heart: Regular. Positive S1-S2. No murmur. No rub. Pericardial drain site intact.
Lungs: Bronchovesicular breath sounds, clear
Abd: Positive BS, NT/ND, neg rebound/rigidity/guarding
Ext: No edema
Neuro: nonfocal
[2024-06-12 11:59] LABS: LDH 388 U/L (120-246)
[2024-06-12 12:00] VITALS: BP 115/76
--- NOTE | 2024-06-12 13:13 | PTCARENOTE ---
rGeyson DIANE at bedside to pull drain. Pt tolerated. L lower chest w/ gauze and tegaderm c/d/i.
[2024-06-12 15:37] VITALS: BP 117/70
[2024-06-12] MEDS: LOVENOX SC (17:09)
[2024-06-12 19:19] VITALS: BP 125/90
[2024-06-12] MEDS: SENOKOT-S PO (19:38)
[2024-06-12] MEDS: SENOKOT PO (19:38)
[2024-06-12] MEDS: MELATONIN 20 MG PO (21:13)
[2024-06-12] MEDS: CYMBALTA DELAYED RELEASE 30 MG PO (21:14)
[2024-06-12] MEDS: PROTONIX 40 MG PO (21:14)
[2024-06-12] MEDS: NEURONTIN 900 MG PO (21:14)
[2024-06-12 22:41] VITALS: BP 116/66
--- NOTE | 2024-06-12 23:21 | PTCARENOTE ---
Pt AAOx3, reports some anxiety regarding next blood draw tomorrow morning, states that it has been very difficult for staff to obtain lab work. Does have a subcutaneous port, which was unable to be accessed this admission. Comfort provided. Pt
reports moderate pain at former drain insertion site, dressing CDI. PRN medication given per JUN. Pt ambulatory in room, reports multiple loose stools, refuses scheduled stool softeners. Call heller within reach.
[2024-06-13] MEDS: TYLENOL 650 MG PO (05:24)
[2024-06-13] MEDS: ATIVAN 0.5 MG PO (05:24)
--- NOTE | 2024-06-13 05:33 | PTCARENOTE ---
Pt reports onset of headache, reports hx of migraines, states that she takes medication at home for migraines. Tylenol given per JUN. Pt requests PRN ativan for anxiety, given per JUN.
[2024-06-13 05:48] LABS: Hematocrit 23.7 % (37.0-47.0); Hemoglobin 7.9 g/dL (12.0-16.0); Mean Corp Hgb Conc. 33.3 g/dL (33.0-37.0); Mean Corpuscular Hgb 32.5 pg (27.0-31.0); Mean Corpuscular Volume 97.5 fL (81.0-99.0); Mean Platelet Volume 7.9 fL (7.4-10.4); Platelet Count 221 10^3/uL (130-400); Red Blood Cell Count 2.43 10^6/uL (4.20-5.40); Red Cell Dist. Width 18.6 % (11.5-14.5); White Blood Cell Count 3.3 10^3/uL (4.8-10.8)
[2024-06-13 05:54] LABS: ALT (SGPT) 111 U/L (0-35); AST (SGOT) 38 U/L (14-36); Albumin 3.2 g/dl (3.5-5.0); Alkaline Phosphatase 105 U/L (38-126); Blood Urea Nitrogen 11 mg/dl (7-17); Calcium 9.1 mg/dl (8.4-10.2); Carbon Dioxide 29 mmol/L (22-30); Chloride 105 mmol/L (98-107); Estimated Creatinine Clearance > 125 ml/min; Glucose 88 mg/dl (70-99); Sodium 138 mmol/L (135-145); Total Bilirubin 0.6 mg/dl (0.2-1.3); Total Protein 5.7 g/dl (6.3-8.2); eGFR > 60.00
[2024-06-13 07:35] LABS: % Basophils 1.5 % (0-2); % Eosinophils 2.4 % (0-6); % Immature Granulocytes 0.3 % (0-0.5); % Lymphocytes 35.9 % (20.5-51.1); % Monocytes 6.9 % (1.7-9.3); Absolute Basophils 0.1 10^3/uL (0-0.2); Absolute Eosinophils 0.1 10^3/uL (0-0.7); Absolute Lymphocytes 1.2 10^3/uL (1.2-3.4); Absolute Monocytes 0.2 10^3/uL (0.1-0.6); Absolute Neutrophils 1.8 10^3/uL (1.4-6.5); Nucleated Red Blood Cells % 0 %
[2024-06-13 07:47] VITALS: BP 128/82
[2024-06-13] MEDS: OSCAL 500 + D 500 MG PO (08:48)
[2024-06-13] MEDS: SENOKOT PO (08:48)
[2024-06-13] MEDS: COLCHICINE 0.6 MG PO (08:48)
[2024-06-13] MEDS: MIRALAX PO (08:48)
[2024-06-13] MEDS: NEURONTIN 600 MG PO (08:48)
[2024-06-13] MEDS: SENOKOT-S PO (08:49)
[2024-06-13 09:07] VITALS: BMI 38.9
--- NOTE | 2024-06-13 09:52 | W.PN.HOSP.TC ---
Addendum entered and electronically signed by Esther Serrano MD, Resident 06/13/24 17:15:
CDI Query
#Anemia likely secondary to malignancy or recent treatment of malignancy with chemotherapy
-Iron and B12 adequate
-Hgb levels remained stable through stay
-no association with acute blood loss anemia seen
Addendum entered and electronically signed by David Gallagher MD 06/13/24 13:57:
I saw and evaluated the patient. I reviewed the resident�s note and agree with findings and plan as documented in the resident�s note.
Seen earlier today. Late documentation.
Patient was at bedside
She was ambulating from the bathroom. Feeling Much better except for mild pain at the site of the tube insertion
No right upper quadrant tenderness
Repeat echo without any reaccumulation of pericardial effusion
Cardiology okay with discharging patient on colchicine. Also discussed with the patient regarding getting repeat CMP done as outpatient.
Resident discussed with cards.
More than 30 minutes spent in discharge including
Final examination of the patient
Summarizing hospital stay
Instructions for continuing care to all relevant caregivers
Preparation of discharge records, prescriptions, and referral forms
Total time spent (in minutes): more than 30 min
Original Note:
Today's Communication/Plan
-
Patient to be discharged today following no abnormalities seen on Echocardiogram. Will follow up with specialists in the future.
Assessment / Plan
Assessment / Plan
Assessment:
43 year old female with a past medical history of metastatic left breast cancer who was referred for pericardiocentesis for pericardial effusion from [facility]. Patient underwent procedure and had 660 ccs of fluid removed. Patient's drain
was removed on 06/12 and has been receiving prophylatic Colchicine. Patient to undergo repeat 2d echo today for further evaluation.
#Pericardial effusion status post pericardiocentesis
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 Area around drain still mildly tender but no erythema or drainage noted
-Pericardial fluid sent for culture, Gram stain, fungal smear and cytology
-No growth seen in fluid, Gram Stain was negative, awaiting Cytology results
-More exudative fluids
-Cardiology consulted, input appreciated
-Continue colchicine for pericarditis prophylaxis- will continue for around 3 months as per cardiology
-pain adequately controlled with Tramadol and Dilaudid as needed-continue home gabapentin
-Hemoglobin stable
-2-D Echo done today showed no abnormalities, will follow up with Cardiology in the outpatient setting for follow up Echo in 3-4 weeks.
# Metastatic breast cancer on chemotherapy
-Found on routine mammogram in 2019 -> ER/VA positive, HER2 negative
-Carboplatin was stopped and continues to be on Gemzar
-Follow up with Oncology in out patient setting. Has regular testing with them including Liver enzyme testing
#Elevated Liver Enzymes
-trending down, may be due to recent chemo therapy. Will have to follow up with Oncology in outpatient setting regarding the levels.
# GERD prophylaxis
-Continue PPI
# Vitamin D deficiency
-Continue calcium carbonate
#Migraines
-Continue Fioricet as needed for migraines
# Depression/anxiety
-Continue Cymbalta and Lorazepam
DVT prophylaxis
Lovenox
CODE STATUS
Full code
Anticipated Discharge: Today
Subjective/Interval History
-
Date of Service: June 13, 2024
Patient says that she has been feeling well and had no acute concerns over night. She says that she has some mild pain around the site of her chest tube placement but otherwise has no concerns. Looking forward to getting out of the hospital today.
Objective Data
-
Labs:
Laboratory Results
06/13/24
05:21
WBC 3.3 L
Hgb 7.9 L
Hct 23.7 L
Plt Count 221
Sodium 138
Potassium 4.0
Chloride 105
Carbon Dioxide 29
BUN 11
Creatinine 0.5 L
Glucose 88
Calcium 9.1
Total Bilirubin 0.6
AST 38 H
ALT 111 H
Alkaline Phosphatase 105
Vital Signs:
Vital Signs
Temp Pulse Resp BP Pulse Ox
98 F 95 20 116/66 95
06/13/24 07:47 06/13/24 06:00 06/13/24 07:47 06/12/24 22:41 06/13/24 07:47
I&O
06/12/24 06/13/24 06/14/24
06:59 06:59 06:59
Intake Total 400 / 400
Output Total
Balance 400 / 400
Review of Systems
-
History Source: Patient
Constitutional: Reports No Symptoms
Respiratory: Reports No Symptoms
Cardiac: Reports No Symptoms
Abdomen/GI: Reports No Symptoms
Musculoskeletal: Reports Other (Pain around area of previous chest tube placement)
Skin: Reports No Symptoms
Physical Exam
-
General: Well Developed and No Apparent Distress
HEENT: Normocephalic, Atraumatic and Moist Mucous Membranes
Respiratory: Clear to Auscultation and Non Labored Respirations
Cardiac: Regular Rhythm and S1/S2
GI: Soft, Nontender and Nondistended
Musculoskeletal: No Clubbing, No Cyanosis and No Edema
Skin: Warm, Dry and Other (No Erythema or tenderness around site of previous chest tube)
Neuro: Awake, Alert, Oriented and AO x 3
Psych: Calm
Data Reviewed
-
Labs: Labs Reviewed by me, Discussed with Physician and Discussed with Patient
--- NOTE | 2024-06-13 09:53 | W.PN.CARDCBS ---
Addendum entered and electronically signed by Gael Damon MD 06/13/24 13:11:
Patient feels well at present. at bedside
Medications: Subcu Lovenox, Cymbalta, pantoprazole, colchicine, Neurontin, Senokot
128/82, pulse 104, respiratory rate 18, afebrile, lungs are clear, JVD okay, regular rate and rhythm, no edema, No murmur
Hemoglobin 7.9, which is stable BUN and creatinine are 11 and 0.9 with a potassium of 4
Echo: No pericardial effusion
Impression:
Status post pericardiocentesis for tamponade 06/10/2024
History of metastatic breast cancer
Anxiety/depression
Migraines
Osteoarthritis
Plan:
There is no evidence of pericardial effusion at present, volume status seems appropriate, no evidence of heart failure.
Stable for discharge
Await cytology
Continue colchicine for now
Arrangements for cardiology follow-up have been made
Original Note:
Today's Communication / Plan
-
Limited echo today
Outpatient cardiology follow-up has been arranged
Continue colchicine
Impression / Plan
-
This is the cardiology consult update.
Consult scanned into chart.
PCP: Thu Hinkle MD
CDY: Tito Smith MD
IMPRESSION/PLAN:
Presented to [facility] with dyspnea and fatigue noted to have large pericardial effusion and transferred to [facility] 06/10/2024
Large pericardial effusion w/evidence of tamponade
s/p Pericardiocentesis 06/10/2024 with removal of 660 cc of bloody fluid with placement of pericardial drain
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
Invasive ductal carcinoma Left breast
Lymphadenopathy
Metastatic Breast Cancer
s/p partial mastectomy L breast with L axilla LND (10/2019)
s/p Bilateral breast reconstruction (06/2021)
s/p Left breast reconstruction (08/2021)
s/p GENEVIEVE-BSO
s/p redo bilateral breast reconstruction (12/2022 and 06/2023)
Recent PET scan shows remission
Dr. Lewis is oncologist
continue pain management- tramadol, medical marijuana
Chronic Migraine
Anxiety/Depression
Left Knee Osteoarthritis
Right knee patellofemoral arthralgia
Echo 06/10/2024 (limited study) gross normal LV chamber size and function. Large pericardial effusion
Echo06/11/2024: Limited follow-up 2D echocardiogram with normal biventricular size and systolic
Echo 06/13/2024 (limited study): Ordered
Plan:
Large pericardial effusion with evidence of tamponade status post pericardiocentesis and placement of pericardial drain with goal of 660cc of bloody fluid 06/10/2024
- Remains hemodynamically stable
- Pericardial drain removed 06/12/2024
- Repeat limited 2D echocardiogram ordered for 06/13; then will need follow-up echo 3 to 4 weeks as outpatient
- Hemoglobin stable, 7.9,Creatinine 0.5.
- LFTs improving: AST 38, peaked at 107. ALT 111, peaked at 200
- Bedside echocardiogram 06/11/2024 with normal biventricular size and systolic function, no pericardial effusion
- Fluid cultures pending, no growth at 48 hours. Cytology pending.
- Continue colchicine. Pain control
- Monitor fever trends; last time 06/10/2024 101.4 degrees; has been afebrile since then
Metastatic breast cancer on chemotherapy. In remission based on last PET scan 05/2024. Carboplatin was stopped and patient continues on Gemzar.
If echo is stable anticipate discharge home later today.
Outpatient cardiology follow-up has been arranged
HPI :
The patient is a 43-year-old woman with a past medical history significant for recurrent breast cancer on chemotherapy in remission based on last PET scan 1 month ago, who presented with several days of increasing dyspnea and fatigue to the
[facility] emergency room. Workup in the emergency room showed a CT scan with a large pericardial effusion. Stat echocardiogram performed in the [facility] emergency room showed a large pericardial effusion with echocardiographic
evidence of tamponade physiology. She was transferred to [facility] for urgent pericardiocentesis 06/10/2024
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
Subjective
Date of Service: June 13, 2024
Patient seen and examined. Patient's at bedside. Patient reports that she is feeling well. She has been able to ambulate around the unit without chest pain or shortness of breath. Was able to sleep well last night
Objective
Labs:
06/13/24 05:21
06/13/24 05:21
Labs
Hgb 7.9 g/dL (12.0-16.0) L 06/13/24 05:21
Hct 23.7 % (37.0-47.0) L 06/13/24 05:21
Plt Count 221 10^3/uL (130-400) 06/13/24 05:21
Sodium 138 mmol/L (135-145) 06/13/24 05:21
Potassium 4.0 mmol/L (3.5-5.1) 06/13/24 05:21
BUN 11 mg/dl (7-17) 06/13/24 05:21
Creatinine 0.5 mg/dL (0.6-1.0) L 06/13/24 05:21
Glucose 88 mg/dl (70-99) 06/13/24 05:21
Vital Signs and I&O:
Vital Signs
Temp Pulse Resp BP Pulse Ox
98 F 95 20 116/66 95
06/13/24 07:47 06/13/24 06:00 06/13/24 07:47 06/12/24 22:41 06/13/24 07:47
Vital Signs
Temp Pulse Resp BP Pulse Ox
98 F 95 20 116/66 95
06/13/24 07:47 06/13/24 06:00 06/13/24 07:47 06/12/24 22:41 06/13/24 07:47
Intake & Output
06/11/24 06/12/24 06/13/24 06/14/24
05:59 06:59 06:59 06:59
Intake Total 400 / 400
Output Total
Balance 400 / 400
Physical Exam
Physical Exam
GEN: No distress, awake, Ox3
HEENT: supple, anicteric, mmm
LUNGS: CTA, no wheezes/rales
CV: Brisk heart tones, reg, S1/S2, no murmur rub or gallop
ABD: soft, BS+, NT/ND
EXT: No edema, clubbing or cyanosis
NEURO: Gross non-focal
SKIN: No rash, warm, dry, pink
[2024-06-13 11:23] VITALS: BP 116/75
--- NOTE | 2024-06-13 12:48 | CM ---
spoke to pt i room, she is pre vindep, lives withher husb in a 2 story home with no steps to enter. she denies any dme's or dm planning needs. plan is for dc to home when medically stable.
[2024-06-13] MEDS: AFLURIA (36 mos+) 2024-2025 FORMULA 0.5 ML IM (13:42)
--- NOTE | 2024-06-13 13:57 | PTCARENOTE ---
Patient discharged to home. Teaching provided and patient verbalized understanding. Patient escorted to main jayme, her spouse is driving her home
--- NOTE | 2024-06-13 16:40 | PN.CDI ---
CDI
- -
CDI:
Physician Documentation Request
Admit Date: 06/10/24 17:42
Dear Doctor Zach,
Patient admitted with pericardial effusion and underwent a pericardiocentesis which drained 660 cc of bloody fluid.
Patient progress notes include a diagnosis of Anemia secondary to malignancy.
Based on the above, could you clarify, in your progress note, which of the following is the most likely type of anemia you are evaluating, monitoring and/or treating?
Acute blood loss anemia with anemia secondary to malignancy
Anemia secondary to malignancy only
Other
Use of terms such as suspected, likely, concern for, or probable (associated with a specific diagnosis that is being evaluated, monitored, or treated as if it exists) are acceptable and can be coded in the inpatient setting, when documented at the
time of discharge.
Thank you,
Clemencia Lobo RN, BSN
CDI Specialist
tiger text
Please use your independent medical judgment in providing your response.
--- NOTE | 2024-06-13 16:47 | W.DCSUMMARY ---
Addendum entered and electronically signed by David Gallagher MD 06/14/24 07:23:
Read, reviewed, and agree. See same day progress note for additional details. Time spent coordinating care, DC planning, review of DC plan of care with resident, transition of care, review of records in EMR, med rec, consults, notes, d/w
consultants, nursing, family, and CM mins
Original Note:
Documented by User: Esther Serrano MD, Resident 06/13/24 17:59
Discharge Summary
Discharge Data
Date of Admission: 06/10/24
Date of Discharge: 06/13/24
-
Pending Results: Yes
Additional Pending Results:
Pericardial fluid fungal culture
Pericardial fluid cytology
Hospital Course
Discharging Physician : Dr. Esther Serrano, Dr. David Gallagher
Disposition : Home
Primary care physician : Dr. Thu Hinkle
Principal Discharge Diagnosis : Pericardial effusion, Elevated liver enzymes
Chronic Discharge Diagnosis: Anxiety/Depression, Metastatic Breast Cancer, Migraines
Hospital Course :
43-year-old female with past medical history of metastatic breast cancer presented to [place] emergency department following 3 days of dyspnea and chest tightness which was exacerbated by exertion. She had a bedside echo done in [place] ED
which showed large pericardial effusion with evidence of tamponade. CT chest with PE protocol was done in [place] which did not show any filling defects. Patient was transferred to [facility] for pericardiocentesis and immediately went to
the [employer]. Around 660 cc of fluid was drained and a drain was placed. Fluid was sent for culture and cytology. Patient was started on colchicine for pericarditis prophylaxis. Fluid continued to drain from the drain and there was significant
improvement of shortness of breath after pericardiocentesis. Patient had echocardiograms done after the procedure which showed much improvement in heart size and systolic function and resolution of effusion. Patient had some elevated LFTs that was
seen which trended down throughout her stay. Fluid studies indicated that the fluid was exudative and further follow-up will be required as cytology results come back. Patient's pericardial drain was removed by interventional cardiology and
patient was stable afterwards. Patient had no further shortness of breath and her only complaint was that she had some mild tenderness at the area of the chest tube placement. Throughout her stay patient continued to be on proton pump inhibitors for
her GERD, Fioricet for her migraines, Cymbalta and lorazepam for her anxiety and depression. Final 2D echo was done on 06/13/2024, which showed resolution of pericardial effusion and normal systolic function of the heart. Patient was
deemed stable enough to be discharged home with instructions to follow-up with cardiology. Patient already has appointment set up. Patient to continue on colchicine for at least 3 months according to cardiology. Patient to follow-up with PCP
within at least 1 week. Patient will get follow-up labs done with oncology where they will follow-up with her elevated liver enzymes which may be due to her ongoing chemotherapy.
Important imaging findings :
Echocardiogram (06/10/2024): Limited echocardiogram performed during pericardiocentesis.
Gross normal left ventricular chamber size and systolic function. Left
ventricle not well visualized.
Grossly normal right ventricular size and systolic function.
Normal atria.
Large pericardial effusion.
Effusion grossly resolved post procedure.
Echocardiogram (06/11/2024) (Post Pericardiocentesis)
Limited follow-up 2D echocardiogram for pericardial effusion
Normal biventricular size and systolic function
Left ventricular ejection fraction visually estimated 60 to 65%
In limited assessment, no significant valve pathology
No significant pericardial effusion
Procedure findings :
PERICARDIOCENTESIS (06/10/2024):
Indications: The patient is a 43-year-old woman with a past medical history significant for recurrent breast cancer on chemotherapy who presented with several days of increasing dyspnea and fatigue to the [facility] emergency room. Workup
in the emergency room showed a CAT scan with a large pericardial effusion. Stat echocardiogram performed in the [facility] emergency room showed a large pericardial effusion with echocardiographic evidence of tamponade physiology. She was
transferred to [facility] for urgent pericardiocentesis. The subxiphoid images were suboptimal and a apical approach is planned.
Procedure: Informed consent was obtained and the patient was draped and prepped in usual sterile fashion. Ultrasound guidance was used. A subxiphoid approach was not performed due to the long distance necessary from the skin to the pericardial
space. Instead a apical approach was used as I felt this was the safest easiest access to the largest area of pericardial effusion. The patient was given conscious sedation with Versed and fentanyl. Lidocaine was used to anesthetize the skin and
underlying tissues. A micropuncture needle was advanced over the cephalic edge of the rib and entered the pericardial space. A micropuncture wire was advanced and movement of the wire suggested a intrapericardial location. The micropuncture
sheath was then advanced and agitated saline was injected and confirmed to be in the pericardial space using echocardiography. A pigtail catheter was then positioned in the pericardium and approximately 660 cc of bloody dark fluid was removed. The
pigtail catheter was sutured in place and follow-up echocardiography showed complete resolution of the pericardial effusion.
Conclusion: Successful placement of a pericardial drain with removal of 660 cc of bloody fluid.
Discharge Plan
-
Patient Disposition: Home (Routine Discharge)
Discharge Diagnosis/Procedures: Pericardial effusion, post pericardiocentesis
Breast cancer
Elevated LFTS
Diet: Regular
Activity: As tolerated
Driving Restrictions: As prior to admission
Bathing Restrictions: None
Others Tests: CMP 1 week with hematology
Stand Alone Forms: DC Instructions- Cath/EP Lab
Referrals:
Thu Hinkle DO [Family Provider] -
Xander Smith MD [Non-Admitting Privileges] - 06/30/24 2:00 pm (You have outpatient cardiology with Dr. Smith on June 30 at 2 PM at their [place] office. If you are unable to make this appointment please call [phone] to
reschedule)
Additional Discharge Medication Instructions: Follow up with Cardiology as directed (Appointment scheduled for 06/30/24 at 2pm). Will need follow up echo in 3-4 weeks as outpatient
Follow up with PCP within 1 week
Follow up with Oncology and have regular testing done (Especially for checking Liver enzymes)
Follow up regarding results of Pericardial fluid testing (Cytology and Cultures that are still pending)
Prescriptions:
New
colchicine 0.6 mg Tablet
0.6 mg PO BID 30 Days Qty: 60 2RF
Continued
multivitamin Tablet
1 tab PO DAILY
tramadol 50 mg Tablet
50 mg PO Q6H PRN (Reason: moderate pain)
lorazepam 0.5 mg Tablet
0.5 mg PO Q4HPRN PRN (Reason: anxiety)
pantoprazole [Protonix] 40 mg Tablet,Delayed Release (Dr/Ec)
40 mg PO HS
duloxetine [Cymbalta] 30 mg Capsule,Delayed Release(Dr/Ec)
30 mg PO HS
mjpwzszxdy-mldohecvloubx-dria [Fioricet] 50-300-40 mg Capsule
1 cap PO Q8HPRN PRN (Reason: migraine)
calcium carbonate-vitamin D3 [Caltrate with Vitamin D3] 600 mg-20 mcg (800 unit) Tablet
1 tab PO BID
melatonin 10 mg Capsule
20 mg PO HS
docusate sodium [Colace] 100 mg Capsule
100 mg PO BID
Hair,Skin and Nails Tablet
3 tab PO DAILY
gabapentin 300 mg Capsule
600 mg PO DAILY
gabapentin 300 mg Capsule
900 mg PO HS
Discharge Orders:
Discharge Patient (As Directed); Ordered 06/13/24
Ordered By: Esther Serrano
Care Plan Goals
Care Plan Goals:
Problem: Readiness for enhanced knowledge related to diagnosis and treatment plan
Goal: Understand your diagnosis and treatment plan needs, including medications if applicable.
Instructions: Know your diagnosis, underlying causes and treatment plan options, including medications if applicable. Consult with your health care team to learn about your diagnosis and treatment plan, including medications if applicable.
Discharge Date and Time
Discharge Date/Time: 06/13/24 14:00
Print Language: BELGIAN

Documented by User: David Gallagher MD 06/14/24 07:21
Discharge Summary
Discharge Data
Date of Admission: 06/10/24
Date of Discharge: 06/14/24
Discharge Plan
-
Patient Disposition: Home (Routine Discharge)
Discharge Diagnosis/Procedures: Pericardial effusion, post pericardiocentesis
Breast cancer
Elevated LFTS
Diet: Regular
Activity: As tolerated
Driving Restrictions: As prior to admission
Bathing Restrictions: None
Others Tests: CMP 1 week with hematology
Stand Alone Forms: DC Instructions- Cath/EP Lab
Referrals:
Thu Hinkle, [Family Provider] -
Xander Smith MD [Non-Admitting Privileges] - 06/30/24 2:00 pm (You have outpatient cardiology with Dr. Smith on June 30 at 2 PM at their [place] office. If you are unable to make this appointment please call [phone] to
reschedule)
Additional Discharge Medication Instructions: Follow up with Cardiology as directed (Appointment scheduled for 06/30/24 at 2pm). Will need follow up echo in 3-4 weeks as outpatient
Follow up with PCP within 1 week
Follow up with Oncology and have regular testing done (Especially for checking Liver enzymes)
Follow up regarding results of Pericardial fluid testing (Cytology and Cultures that are still pending)
Prescriptions:
New
colchicine 0.6 mg Tablet
0.6 mg PO BID 30 Days Qty: 60 2RF
Continued
multivitamin Tablet
1 tab PO DAILY
tramadol 50 mg Tablet
50 mg PO Q6H PRN (Reason: moderate pain)
lorazepam 0.5 mg Tablet
0.5 mg PO Q4HPRN PRN (Reason: anxiety)
pantoprazole [Protonix] 40 mg Tablet,Delayed Release (Dr/Ec)
40 mg PO HS
duloxetine [Cymbalta] 30 mg Capsule,Delayed Release(Dr/Ec)
30 mg PO HS
eaipfnrdlj-ewnqukvjqcagw-mpyg [Fioricet] 50-300-40 mg Capsule
1 cap PO Q8HPRN PRN (Reason: migraine)
calcium carbonate-vitamin D3 [Caltrate with Vitamin D3] 600 mg-20 mcg (800 unit) Tablet
1 tab PO BID
melatonin 10 mg Capsule
20 mg PO HS
docusate sodium [Colace] 100 mg Capsule
100 mg PO BID
Hair,Skin and Nails Tablet
3 tab PO DAILY
gabapentin 300 mg Capsule
600 mg PO DAILY
gabapentin 300 mg Capsule
900 mg PO HS
Discharge Orders:
Discharge Patient (As Directed); Ordered 06/13/24
Ordered By: Esther Serrano
Care Plan Goals
Care Plan Goals:
Problem: Readiness for enhanced knowledge related to diagnosis and treatment plan
Goal: Understand your diagnosis and treatment plan needs, including medications if applicable.
Instructions: Know your diagnosis, underlying causes and treatment plan options, including medications if applicable. Consult with your health care team to learn about your diagnosis and treatment plan, including medications if applicable.
Discharge Date and Time
Discharge Date/Time: 06/13/24 14:00
Print Language: BELGIAN
--- NOTE | 2024-06-14 07:21 | W.PN.UPDATE ---
Update Note
Progress Note Update
anemia due to malignancy
== END 2024-06-13 14:00 | disposition home or self-care (01) | DRG 598 ==
LOC: IVU 17:42
PROVIDERS: Internal Medicine Interventional Cardiology; Nurse Practitioner Adult Health; ADMITTING PHYSICIAN Internal Medicine; ATTENDING PHYSICIAN Hospitalist; FAMILY PHYSICIAN Family Medicine
PROC: 0W9D30Z Drainage of Pericardial Cavity with Drainage Device, Percutaneous Approach (ICD-10-PCS; 2024-06-10)
DX: C50.912 Malignant neoplasm of unspecified site of left female breast (principal); C79.9 Secondary malignant neoplasm of unspecified site; I31.31 Malignant pericardial effusion in diseases classified elsewhere; I31.4 Cardiac tamponade; K21.9 Gastro-esophageal reflux disease without esophagitis; D63.0 Anemia in neoplastic disease; F32.A Depression, unspecified; F41.9 Anxiety disorder, unspecified; E55.9 Vitamin D deficiency, unspecified; G43.909 Migraine, unspecified, not intractable, without status migrainosus; M17.12 Unilateral primary osteoarthritis, left knee; Z88.0 Allergy status to penicillin; Z88.5 Allergy status to narcotic agent; Z79.899 Other long term (current) drug therapy; Z90.12 Acquired absence of left breast and nipple; Z90.710 Acquired absence of both cervix and uterus; Z90.722 Acquired absence of ovaries, bilateral
CPT/HCPCS: 88305; 93308; 33016; 71045; 80053; 82607; 82728; 82945; 83540; 83550; 83615; 83735; 84157; 85014; 85025; 87015; 87070; 87102; 87116; 87205; 87206; 88112; 88342; 89051; 90686; 93321; 93325; G0008